=== PATIENT | female | born 1965 | race Asian ===

== ENCOUNTER → 2016-09-20 | Outpatient (CLI) | payer OTHER ==
[~2016-09-20] MED LIST: LEVO25TA9 PO
== END | disposition home or self-care (01) ==
LOC: EMPHLTH 10:21
PROVIDERS: ATTEND Internal Medicine
DX: R76.11 Nonspecific reaction to tuberculin skin test without active tuberculosis (principal)

== ENCOUNTER → 2016-12-02 | Outpatient (CLI) | payer OTHER | END | disposition home or self-care (01) | LOC: RADPV 11:34 | PROVIDERS: ATTEND Internal Medicine Cardiovascular Disease | DX: E04.1 Nontoxic single thyroid nodule (principal) | CPT/HCPCS: 93005 ==

== ENCOUNTER 2019-07-04 17:42 | Emergency (ER) | payer OTHER ==
[~2019-07-04] VITALS: Ht 162.6 cm; Wt 59.1 kg
[2019-07-04] MEDS ORDERED: LEVO100 PO (18:04)
[2019-07-04] MEDS ORDERED: PERTUSS(ACELL),DIPH,TET VAC/PF 0.5 ML VIAL IM ONE (19:00)
[2019-07-04 20:46] VITALS: BP 141/72
== END 2019-07-04 21:07 | disposition home or self-care (01) ==
LOC: EMS 17:44
DX: M79.641 Pain in right hand (principal); R03.0 Elevated blood-pressure reading, without diagnosis of hypertension; M79.89 Other specified soft tissue disorders; E03.9 Hypothyroidism, unspecified; J45.909 Unspecified asthma, uncomplicated; Z79.899 Other long term (current) drug therapy; W23.0XXA Caught, crushed, jammed, or pinched between moving objects, initial encounter; Y93.89 Activity, other specified; Y92.69 Other specified industrial and construction area as the place of occurrence of the external cause; Y99.0 Civilian activity done for income or pay
CPT/HCPCS: 29280; 90471; 90715

== ENCOUNTER → 2020-09-21 | Outpatient (CLI) | payer OTHER ==
[~2020-09-21] MED LIST changes: +LEVO100 PO; -LEVO25TA9 PO
== END | disposition home or self-care (01) ==
LOC: RADPV 12:08
PROVIDERS: ATTEND Internal Medicine
DX: R76.11 Nonspecific reaction to tuberculin skin test without active tuberculosis (principal)
CPT/HCPCS: 71045-TC

== ENCOUNTER → 2021-03-15 | Outpatient (CLI) | payer OTHER | END | disposition home or self-care (01) | LOC: RADMN 10:28 | PROVIDERS: ATTEND Internal Medicine | DX: R76.11 Nonspecific reaction to tuberculin skin test without active tuberculosis (principal) | CPT/HCPCS: 71045 ==